=== PATIENT | male | born 1970 | race Caucasian/White ===

== ENCOUNTER 2018-08-22 19:13 | Outpatient (REF) | payer BC, SELFPAY ==
[2018-08-22 19:30] LABS: Abs Immature Grans 0.04 k/cumm (0.0-0.09); Absolute Basophil Count 0.07 k/cumm (0.0-0.2); Absolute Eosinophil Count 0.25 k/cumm (0.0-0.7); Absolute Lymphocyte Count 2.81 k/cumm (1.2-3.4); Absolute Monocyte Count 0.54 k/cumm (0.11-0.7); Absolute Neutrophil Count 3.46 k/cumm (1.2-6.7); Eosinophils % 3.5; HCT 44.3 % (40.0-50.0); HGB 15.9 g/dL (13.5-17.5); Immature Grans % 0.6; Lymphocytes % 39.2; Mean Corp. HGB Concentration 35.9 g/dL (32.0-36.0); Mean Corpuscular Hemoglobin 30.8 pg (27.0-33.0); Mean Corpuscular Volume 85.7 fL (80-95); Monocytes % 7.5; Neutrophils % 48.2; Platelet Count 199 x1000/uL (130-400); RBC 5.17 m/cumm (4.50-6.00); RBC Distribution Width 12.6 % (11.8-14.1); White Blood Cell Count 7.17 k/cumm (4.4-10.8)
[2018-08-22 19:51] LABS: ALT 89 U/L (12-78); AST 42 U/L (15-37); Albumin 3.9 g/dL (3.4-5.0); Alkaline Phosphatase 67 U/L (46-116); Anion Gap 12.6 mmol/L (3-11); BUN 18 mg/dL (7-18); Bilirubin, Total 0.6 mg/dL (0.2-1.0); CO2 22.4 mmol/L (21.0-32.0); CREATININE 1.02 mg/dL (0.70-1.30); Calcium 8.9 mg/dL (8.5-10.1); Calculated LDL 147; Chloride 104 mmol/L (98-107); Cholesterol 222 mg/dL (50-200); Glucose 119 mg/dL (70-100); HDL Cholesterol 37 mg/dL (40-60); Potassium 4.3 mmol/L (3.5-5.1); Sodium 139 mmol/L (136-145); TSH (W/Ref FT4) 3.18 uIU/mL (0.358-3.74); Total Protein 7.1 g/dL (6.4-8.2); Triglyceride 191 mg/dL (30-150)
[2018-08-25 10:11] LABS: Hemoglobin A1C 5.9 % (4.5-6.2)
== END 2018-08-22 19:33 ==
LOC: NCHCN 19:13
PROVIDERS: PCP Family Medicine; Visit Provider Physician Assistant Medical
DX: R03.0 Elevated blood-pressure reading, without diagnosis of hypertension (principal); R73.01 Impaired fasting glucose
CPT/HCPCS: 80053; 80061; 83721; 83036; 84443; 85025

== ENCOUNTER 2019-04-06 11:48 | Outpatient (CLI) | payer BC, SELFPAY ==
--- NOTE | 2019-04-06 11:45 | DI.RAD_ITS ---
EXAM: XR KNEE LT 3V AP,LAT,ROXANA CLINICAL HISTORY: knee pain TECHNIQUE: COMPARISON: LEFT KNEE 3 VIEW COMPLETE from 10/19/2016 FINDINGS: Three views were obtained. There are is no significant bony or soft tissue abnormality seen. IMPRESSION:
== END 2019-04-06 12:08 ==
PROVIDERS: PCP Family Medicine; Visit Provider Physician Assistant
DX: M25.562 Pain in left knee (principal)
CPT/HCPCS: 73562

== ENCOUNTER 2019-10-13 12:13 | Outpatient (REF) | payer BC, SELFPAY ==
[2019-10-13 19:42] LABS: ALT 83 U/L (16-63); AST 39 U/L (15-37); Albumin 4.1 g/dL (3.4-5.0); Alkaline Phosphatase 51 U/L (46-116); BUN 17 mg/dL (7-18); Bilirubin, Total 0.6 mg/dL (0.2-1.0); CREATININE 1.06 mg/dL (0.70-1.30); Calcium 9.3 mg/dL (8.5-10.1); Calculated LDL 142 mg/dL (<100); Chloride 104 mmol/L (98-107); Cholesterol 225 mg/dL (<200); Glucose 125 mg/dL (74-106); HDL Cholesterol 39 mg/dL (40-60); Potassium 4.4 mmol/L (3.5-5.1); Sodium 140 mmol/L (136-145); Total Protein 7.2 g/dL (6.4-8.2); Triglyceride 223 mg/dL (<150)
== END 2019-10-13 12:33 ==
LOC: NCHCN 12:13
PROVIDERS: PCP Family Medicine; Visit Provider Physician Assistant Medical
DX: I10 Essential (primary) hypertension (principal)
CPT/HCPCS: 80053; 80061

== ENCOUNTER 2020-03-22 20:01 | Outpatient (REF) | payer BC, SELFPAY ==
[2020-03-22 22:38] LABS: ALT 117 U/L (16-63); AST 62 U/L (15-37); Albumin 4.3 g/dL (3.4-5.0); Alkaline Phosphatase 51 U/L (46-116); Anion Gap 11.6 mmol/L (3-11); BUN 19 mg/dL (7-18); Bilirubin, Total 0.8 mg/dL (0.2-1.0); CO2 20.4 mmol/L (21.0-32.0); CREATININE 0.96 mg/dL (0.70-1.30); Calcium 9.3 mg/dL (8.5-10.1); Chloride 102 mmol/L (98-107); Glucose 163 mg/dL (74-106); Potassium 4.9 mmol/L (3.5-5.1); Sodium 134 mmol/L (136-145); Total Protein 7.7 g/dL (6.4-8.2)
[2020-03-22 22:43] LABS: Hemoglobin A1C 6.1 % (<5.7)
== END 2020-03-22 20:21 ==
LOC: NCHCN 20:01
PROVIDERS: PCP Family Medicine; Visit Provider Physician Assistant Medical
DX: I10 Essential (primary) hypertension (principal); R73.03 Prediabetes
CPT/HCPCS: 80053; 83036